=== PATIENT | female | born 1975 | race Asian ===

== ENCOUNTER 2023-01-02 14:32 | Inpatient (IN) | payer OTHER, SELFPAY ==
[2022-12-25 10:49] VITALS: BMI 27.4
[2023-01-02] VITALS (11 sets, daily range): BP systolic 102–199; BP diastolic 54–104; PULSE 78–99; RESP 13–20; TEMP 35.7–36.9; O2SAT 96–100; BMI 27.4
--- NOTE | 2023-01-02 | PATH_ITS ---
[facility] Accession Number: [id number] No. of containers..01 Tissue . 01 Material submitted: . uterus - UTERUS,CERVIX,BILATERAL FALLOPIAN TUBES, RIGHT OVAR . 01 Diagnosis: Uterus, Cervix, Bilateral Fallopian Tubes, Right Ovary, Hysterectomy, Bilateral Salpingectomy, and Right Oophorectomy (Weight 603 grams): Ectocervix with focal parakeratosis. Endocervix with inflammation and prominent Nabothian gland cysts; involvement by a leiomyoma (15 mm), negative for cytologic atypia or malignancy. Inactive endometrium; negative for glandular hyperplasia, cytologic atypia or malignancy. Myometrium with multiple intramural leiomyomas (up to 35 mm in greatest dimension); negative for significant atypia or malignancy. Serosa with patchy pseudodecidualized stromal change, suggestive of possible involvement by endometriosis,in the appropriate clinical setting. Left fallopian tube with no significant histomorphologic abnormality. Right ovary with a prominent focus of ovarian stromal hyperplasia. MRV 01/13/2023 1605 Local . 01 Comment: As part of quality systems manager, parts of this case were also reviewed by Dr. Bettencourt, who agrees with the interpretation. . 01 Electronically signed: . Rosario Berman MD, Pathologist NPI- [id number] . 01 Gross description: . The specimen is received in formalin labeled with the patient's name, , and uterus, cervix, bilat. fallopian tubes, right ovary, and consists of an intact, significantly distorted uterus (603 grams, 12.2 x 11.7 x 9.4 cm, due to the distortion orientation cannot be determined), with detached cervix (3.5 x 3.2 cm and 5.5 cm in length), detached presumed left fimbriated fallopian tube (3.3 x 0.7 cm), attached presumed right fimbriated fallopian tube (5.7 x 0.7 cm), and attached presumed right ovary (4 grams, 2.7 x 1.0 x 1.0 cm), and no additional adnexa identified. The ectocervix is pink-jalloh and finely granular with a circular cervical os measuring 0.7 cm in diameter. The paracervical margin is inked blue. The uterine serosa is jalloh and nodular with multiple roughened and hemorrhagic areas measuring up to 5.7 cm in greatest dimension. The presumed area of previous cervical attachment is inked black. The endocervical canal has jalloh herringbone mucosa and is significant for a moderate amount of thick, sticky mucoid material and a well-circumscribed white whorled nodule measuring 1.5 cm in greatest dimension. The endocervical canal measures 5.1 cm in length. The endometrial cavity is significantly distorted and measures approximately 1.9 cm from cornu to cornu, and 7.3 cm in length with no polyps or lesions grossly identified. The myometrium is jalloh and trabecular and significant for numerous well-circumscribed white whorled nodules measuring up to 3.5 cm in greatest dimension and significant for hemorrhagic areas and areas of yellow discoloration possibly consistent with necrosis. No calcification is identified. The myometrium measures up to 5.6 cm in maximum thickness. The left fallopian tube has congested smooth serosa with no cystic structures identified, and sectioning reveals an unremarkable stellate lumen. The right fallopian tube has jalloh smooth serosa with no cystic structures identified and sectioning reveals an unremarkable stellate lumen. The right ovary has a jalloh cerebriform external surface and sectioning reveals a pale jalloh, physiologic cut surface with no discrete lesions grossly identified. . Administrative Tech sections are submitted as follows: A1-A2: Cervix with nodule. A3-A4: Full thickness composite sections. A5: Hemorrhagic serosa. A6-A9: Administrative Tech nodules with hemorrhage and possible necrotic areas. A10: Left fallopian tube to include one-half of bisected fimbriae and cross-sections. A11: Right fallopian tube to include one-half of bisected fimbriae and cross-sections. A12: Administrative Tech right ovary. ([id number]) /MIR 01/03/2023 1054 Local . 01 Pathologist provided ICD-10: D25.9, N92.1 . 01 CPT . 553617 Specimen Comment: A courtesy copy of this report has been sent to [phone] Performed at: 01 [facility] [address] [place] [address], [place], [place] [id number] MD Pavel Chowdhury MD Phone: [phone]
[2023-01-02 09:20] LABS: COVID19 -Nasal RAPID Negative (Negative)
[2023-01-02] MEDS: LACTATED RINGERS 1,000 ML 42 ML IV (09:36)
--- NOTE | 2023-01-02 09:36 | PM.PREOP ---
Pre-operative Note COVID-19 COVID-19 status: Negative Result date/Date tested (Pos, Neg/Pending): 01/02/23 Criteria for continued procedure: Non-surgical alternatives not available or appropriate per current SOC Interval Note History & Physical reviewed/Exam performed by Physician: Yes Changes to H&P: No
[2023-01-02] MEDS: SCOPOLAMINE 1 PATCH TOP (09:38)
[2023-01-02 09:59] LABS: Add Manual Diff / Slide Review NO; Basophils Absolute Auto 100 /uL (0-100); Basophils Percent Auto 0.8 % (0-2); Eosinophils Absolute Auto 100 /uL (0-450); Hematocrit 44.1 % (36-46); Lymphocytes Absolute Auto 2300 /uL (1100-4500); Lymphocytes Percent Auto 31.8 % (25-40); Mean Corpuscular Hemoglobin 28.5 PG (26-34); Mean Corpuscular Volume 83.8 fL (80-100); Monocytes Absolute Auto 700 /uL (0-900); Monocytes Percent Auto 9.5 % (3-14); Neutrophils Absolute Auto 4000 /uL (1500-7000); Neutrophils Percent Auto 55.9 % (50-75); Platelet Count 292 X10^3/uL (150-400); Red Blood Cell Count 5.26 X10^6/uL (4.0-5.2); Red Cell Distribution Width 13.5 % (11.6-14.8); White Blood Cell Count 7.2 X10^3/uL (4.5-11.0)
--- NOTE | 2023-01-02 10:11 | SUR.OPER ---
Lithotomy on padded OR bed. Nada Pad Positioner under torso. Head on pillow, arms padded and tucked at sides. Legs secured in padded yellow fins stirrups.
[2023-01-02] MEDS: CEFAZOLIN 2 GM/100 ML PREMIX 100 ML IV (10:30)
[2023-01-02] MEDS: BUPIVACAINE 0.5% (PF) 10 ML VIAL 30 ML INJ (11:20)
[2023-01-02] MEDS: ACETAMINOPHEN IV 1,000 MG/100 ML VIAL 400 MG IV (11:25)
[2023-01-02] MEDS: hydrOXYzine pamoate 25 MG CAPSULE PO (13:10)
[2023-01-02] MEDS: OXYCODONE IR 5 MG TABLET PO (13:10)
[2023-01-02] MEDS: ONDANSETRON 4 MG/2 ML INJ IV (13:11)
[2023-01-02] MEDS: LACTATED RINGERS 1,000 ML 100 ML IV ×3 (13:35→22:59)
--- NOTE | 2023-01-02 13:48 | P.OP_ITS ---
Operative Date/Time/Diagnoses Date of procedure: 01/02/23 Time of procedure: 10:30 Pre-op diagnosis: Menometrorrhagia Uterine fibroids Post-op diagnosis: same Procedure & Clinicians Procedure: Procedures Operation Date: 01/02/23 09:45 Actual Procedure Side Surgeon p TOTAL ABDOMINAL HYSTERECTOMY, w/ RIGHT SALPINGO-OOPHORECTOMY AND LEFT SLAPINGECTOMY DIAGNOSTIC LAPAROSCOPY Neel Madison MD Indications: Ev is a 46-year-old , LMP about 3 weeks ago w/ ongoing spotting, who presented in referral from Dr. Shavon Haskins in order to discuss hysterectomy.? The patient experienced menarche at age 11 and although her periods were heavy through out most of her reproductive life, they were fairly regular.? She is had a single resulting in a single spontaneous vaginal and due to her heavy periods was placed on oral contraceptives for many years.? Her periods remain regular but in September 2021 her menses which were lasting about 5 days at the time increased to 10 days in duration with only a few days off between the end of one and the start of the next.? By March 2022 however her bleeding was almost continuous and she had a pelvic ultrasound performed at that time which showed the uterus to be enlarged measuring 15.6 x 7.9 x 12.2 cm with numerous fibroids noted.? The ovaries were unremarkable.? No pathologic free fluid or pelvic fluid was noted.? In April 2022 she underwent endometrial biopsy which showed only scant fragments of proliferative endometrium with no atypia, neoplasia, or hyperplasia noted.? She is currently on Lessina daily and Norethindrone acetate 10 mg to control her bleeding.? While somewhat effective upon initiation, she's been bleeding nealry? continuously since March 2022.? She is taking additional iron daily but no recent H&H results are available.? Pap smear is current with her most recent Pap in 2020 and all of her Paps have been normal.? Plugger Man review of systems is notable for some occasional mild JOSÉ MIGUEL and urinary frequency.? She has had no issues with bowel movements or defecation. After discussion regarding all options further evaluation and treatment, the patient has opted to proceed with total laparoscopic hysterectomy with bilateral salpingectomy, possible laparoscopic-assisted vaginal hysterectomy with bilateral salpingectomy, or possible total abdominal hysterectomy with bilateral salpingectomy.? She presents today for preoperative evaluation, counseling, and consent. Surgeon: Neel Madison Real Estate Site Analyst: Elsa Francis Anesthesia Type: General Operative Notes Findings: The uterus is enlarged to approximately 14 week size and is multiple myomatous. Laterally, the uterus extended to both pelvic sidewalls due to the position of her myomas laterally. The right tube and ovary are densely adherent to the lateral aspect of the uterus and therefore were removed along with the uterus. The left adnexa was also distorted but not adherent to the uterus and therefore the left ovary was left in-situ but the left tube was removed. Visualization the pelvis and abdomen laparoscopically revealed the findings as noted previously and due to the size and location of the uterine fibroids, laparoscopic hysterectomy was not deemed feasible and therefore an open procedure was instead performed. Closure Type: primary Specimen(s): right tube & ovary, portion of left tube and uterus Applied: catheter Estimated blood loss (mL): 800 Blood products transfused: none Procedure in detail: With the patient under satisfactory general anesthesia in the modified dorsal lithotomy position, the perineum, vagina, and abdomen were prepped and draped in the usual manner for total laparoscopic hysterectomy. A pre-surgical safety time-out was then taken in accordance with [facility] OR protocols. An indwelling Buckner catheter was inserted in the bladder. A speculum was then inserted in the vagina and the cervix visualized. The anterior lip of the cervix was grasped with a single-tooth tenaculum and a VCare uterine manipulator with a medium cup was placed with the endometrial cavity sounding to 11 cm. The patient was repositioned and the lower edge of the umbilicus was infiltrated with 0.5% Marcaine with epinephrine. A 1 cm vertical umbilical incision was made through which a Veress needle was used to insufflate the abdomen with carbon dioxide. Once insufflated, a 5 mm laparoscopic port was inserted through the umbilical incision and confirmation of its correct placement was carried out by laparoscopic inspection of the abdominal cavity. A 2nd and 3rd 5 mm port was placed in the left and right mid quadrants laterally after infiltration of the skin and subcutaneous tissues with 0.5% Marcaine. Using a 3 puncture technique the pelvis and abdomen were thoroughly evaluated with the findings as noted above. The uterus was poorly mobile even with the VC are device in place and due to the proximity to the lateral pelvic chun, laparoscopic hysterectomy was not felt to be safe or feasible therefore the pneumoperitoneum was vented, the ports removed, and preparations made for total abdominal hysterectomy. A 15 cm Pfannenstiel incision was then made and carried down to the deep fascia. The d eep fascia was incised transversely, the rectus abdominis bluntly and the peritoneal cavity entered sharply. Incision was extended upward and downward to the pubis and an O'Luis Enrique O'Garner retractor was placed. Fundus was grasped with a double tooth tenaculum and the uterus mobilized so as to fully evaluate the adnexa on both sides. A LigaSure hand-held device was then used to coagulate and divide the round ligament and the utero-ovarian ligament on the left side. The dissection was carried downward and the bladder flap initiated starting on the left. Attention was then turned to the right side and due to the adhesions involving the right adnexa, the LigaSure device was used to coagulate and divide the round on the right as well as the infundibulopelvic ligament on the right immediately adjacent to the hilum of the ovary. The dissection was then carried down laterally with the LigaSure device so as to coagulate the ascending uterine vessels on both sides. Once the vessels had been secured, the fundus was amputated and passed off field. Dissection with the LigaSure was then carried down to the level of the cervix with each pedicle rendered hemostatic. Once the level of the cervix had been reached, the vaginal mucosa was incised at its reflection with the cervix using Gilbert scissors. Scott clamps were placed on the vaginal mucosa and each angle was secured with #1 Vicryl using transfixing angle stitches. The remainder of the vaginal cuff was then closed with [id number] interrupted using #1 Vicryl. Hemostasis of all pedicles was excellent but there were numerous areas of raw surface which were managed by judicious use of monopolar current and a large Surgicel was placed in the pelvis at the completion of the case and pressure held for several minutes to assure complete hemostasis. Sponge count was correct and the O'Luis Enrique O'Garner were removed from the abdominal cavity. The anterior peritoneum was then closed with 2-0 Vicryl in a running stitch and the fascia closed with 0 Vicryl in a running stitch initiated at both angles and tying separately near the midline. Subcutaneous tissues were also closed with 2-0 Vicryl in a running stitch and the skin edges were brought together with 4-0 Monocryl in a running subcuticular stitch. The laparoscopic port incisions were then closed with 4-0 Monocryl using inverted interrupted stitches and skin glue was applied to the port incisions. Appropriate compression dressings were applied to all incisions and the patient was awakened from anesthesia after having tolerated the procedure well. She was then transferred to the PACU for a period of observation and recovery. Complications: none Post-operative Condition: stable Disposition: PACU Plan for aftercare: Routine postoperative care
[2023-01-02] MEDS: OXYCODONE IR 5 MG TABLET 10 MG PO ×3 (15:36→23:55)
[2023-01-02] MEDS: ACETAMINOPHEN 325 MG TABLET 650 MG PO (18:30)
[2023-01-02] MEDS: DOCUSATE 100 MG CAPSULE 200 MG PO (21:42)
[2023-01-03] VITALS: BP 136/68; PULSE 95; RESP 18; TEMP 36.4; O2SAT 98
[2023-01-03 04:00] VITALS: BP 147/74; PULSE 107; RESP 18; TEMP 36.6; O2SAT 98
[2023-01-03] MEDS: OXYCODONE IR 5 MG TABLET 10 MG PO ×5 (04:51→22:29)
--- NOTE | 2023-01-03 06:25 | PC.NURSE ---
Process Control Programmer Note-A/Ox4, VSS, abdominal dressings D/I, 'belly band' to lower abdomen intact, scant vaginal drainage. 1775ml UOP. Pain controlled with 10mg oxycodone per prn.
[2023-01-03 07:03] LABS: Add Manual Diff / Slide Review NO; Basophils Absolute Auto 0 /uL (0-100); Basophils Percent Auto 0.1 % (0-2); Eosinophils Absolute Auto 0 /uL (0-450); Eosinophils Percent Auto 0.1 % (2-4); Hematocrit 27.8 % (36-46); Hemoglobin 9.4 g/dL (12.0-16.0); Lymphocytes Absolute Auto 1900 /uL (1100-4500); Mean Corpuscular HGB Conc 33.8 % (30-36); Mean Corpuscular Hemoglobin 28.7 PG (26-34); Monocytes Absolute Auto 1600 /uL (0-900); Monocytes Percent Auto 12.2 % (3-14); Neutrophils Absolute Auto 9700 /uL (1500-7000); Neutrophils Percent Auto 73.6 % (50-75); Platelet Count 224 X10^3/uL (150-400); Red Blood Cell Count 3.27 X10^6/uL (4.0-5.2); Red Cell Distribution Width 13.5 % (11.6-14.8); White Blood Cell Count 13.2 X10^3/uL (4.5-11.0)
[2023-01-03] MEDS: ACETAMINOPHEN 325 MG TABLET 650 MG PO ×2 (07:50→15:11)
[2023-01-03 07:52] VITALS: BP 129/76; PULSE 83; RESP 17; TEMP 36.6; O2SAT 97
[2023-01-03] MEDS: DOCUSATE 100 MG CAPSULE 200 MG PO ×2 (07:56→20:30)
--- NOTE | 2023-01-03 10:39 | P.PN_ITS ---
Subjective Subjective Date Patient Seen: 01/03/23 Time Patient Seen: 10:39 Interval history: Patient has done well overnight with good pain control. She has started to pass gas and is not experiencing significant nausea. She is not experiencing any significant vaginal bleeding. She does have some right shoulder pain consistent with subdiaphragmatic air post laparoscopy/laparotomy. H&H this a.m. consistent with observed operative losses. Exam Vital Signs (past 8 hours): - 01/03/23 04:00 01/03/23 07:52 01/03/23 07:00 Temperature 97.9 F 97.9 F Pulse Rate 107 H 83 Respiratory Rate 18 17 Blood Pressure 147/74 H 129/76 Pulse Oximetry 98 97 Oxygen Delivery Method Room Air Oxygen Flow Rate 0 Oxygen Delivery Method Room Air Oxygen Flow Rate 0 Const General: cooperative and comfortable Nutritional Appearance: average body habitus Orientation: alert and oriented x3 HENMT Head: normal to inspection, atraumatic and abrasion Ears: hearing grossly normal bilaterally Face and sinus: face symmetric Eyes General: appearance normal, both eyes and all related structures Conjunctivae: conjunctivae normal Sclera: sclerae normal EOM: EOM intact bilaterally Neck Neck: normal visual inspection Resp Effort & Inspection: normal respiratory effort and able to speak in complete sentences Auscultation: clear to auscultation bilaterally Cardio Rate: regular rate Rhythm: regular rhythm Heart Sounds: S1 normal, S2 normal and no murmurs GI Inspection: normal to inspection and incision (Surgical dressings clean and dry) Palpation: soft, no hepatosplenomegaly and tender (Mild, diffuse postsurgical tenderness) Auscultation: hypoactive bowel sounds External Female Exam: other (No significant bleeding noted) Extrem General: no calf tenderness Psych Appearance: grossly normal Mental Status: mental status grossly normal Speech and Movement: speech and movement normal Mood: congruent mood Affect: normal affect Attitude: cooperative Thought Process: normal Thought Content: normal Judgment: judgment good Objective Labs 01/03/23 05:45 Labs: Laboratory Results - last 24 hr 01/03/23 05:45 WBC 13.2 H D RBC 3.27 L Hgb 9.4 L Hct 27.8 L MCV 85.0 MCH 28.7 MCHC 33.8 RDW 13.5 Plt Count 224 Neut % (Auto) 73.6 Lymph % (Auto) 14.0 L [place] % (Auto) 12.2 Eos % (Auto) 0.1 L Baso % (Auto) 0.1 Neut # (Auto) 9700 H Lymph # (Auto) 1900 [place] # (Auto) 1600 H Eos # (Auto) 0 Baso # (Auto) 0 PFSH Medical History (Updated 01/03/23 @ 10:50 by Neel Madison MD) Anemia Carpal tunnel syndrome Fibroids Heavy menstrual period Irregular menstrual cycle Painful menstrual periods Vision disorder Surgical History (Updated 01/03/23 @ 10:50 by Neel Madison MD) Anesthesia History of appendectomy History of dental surgery (~2020) Family History (Updated 07/09/22 @ 20:33 by Delmi Sheikh) Father Diabetes mellitus History of heart disease Hypertension Hyperlipidemia Stroke Mother Diabetes mellitus Hypertension Social History household members: spouse, family and children Smoking Status: Never smoker alcohol intake: never Assessment & Plan Assessment and plan (1) Menometrorrhagia: Status: Acute (2) Uterine fibroid: Qualifiers: Uterine leiomyoma location: intramural, submucous, and subserous Qualified Code(s): D25.1 - Intramural leiomyoma of uterus; D25.0 - Submucous leiomyoma of uterus; D25.2 - Subserosal leiomyoma of uterus Status: Acute (3) Anemia due to blood loss: Status: Acute (4) H/O hysterectomy with unilateral oophorectomy: Status: Acute Plan Continue routine postoperative care. Will plan to have FSH tested at her 2 week postop check due to vasomotor symptoms she has been experiencing and continues to experience. Discontinue Buckner catheter and encourage ambulation today. Compression dressing will be removed tomorrow and replaced with Aquacel d ressing. Anticipate discharge tomorrow; PO iron supplementation for 30 days post-op Assessment & Plan narrative: Postoperative day 1 status post diagnostic laparoscopy, total abdominal hysterectomy with right salpingo-oophorectomy and left salpingectomy. Anemia due to operative blood loss at the time of hysterectomy Vasomotor symptoms associated with perimenopause/menopause Time Spent With Patient Time with patient: less than 30 minutes Quality VTE Deep Vein Thrombosis/Pulmonary Embolism Present on Admission: No
[2023-01-03 11:22] VITALS: BP 123/61; PULSE 85; RESP 18; TEMP 36.7; O2SAT 98
--- NOTE | 2023-01-03 15:23 | PC.NURSE ---
1500 Patient up ambulating to the bathroom, voided, and is now walking in [place] with PCT. Pt denies dizziness and states she feels stable on her feet. C/o abdominal cramping that she states feels like gas. Patient encouraged to walk frequently. Abd lap site dressings x 3 are C/D/I. Lower abd belly band compression dressing is C/D/I.
--- NOTE | 2023-01-03 16:27 | PM.OBPNLAB ---
Date/Time Date Patient Seen: 01/03/23 Time Patient Seen: 16:27
[2023-01-03] MEDS: SIMETHICONE 80 MG TABLET PO ×2 (17:52→22:29)
[2023-01-03 17:55] VITALS: BP 151/74; PULSE 88; RESP 18; TEMP 36.8; O2SAT 97
--- NOTE | 2023-01-03 18:18 | PC.NURSE ---
1800 Patient ambulating in hallway, denies dizziness, c/o intermittent cramping pain that feels like gas.
[2023-01-03 20:00] VITALS: BP 142/76; PULSE 85; RESP 18; TEMP 36.6; O2SAT 99
[2023-01-03] MEDS: ONDANSETRON 4 MG ODT SL (22:37)
[2023-01-04] MEDS: OXYCODONE IR 5 MG TABLET 10 MG PO (02:53)
[2023-01-04] MEDS: SIMETHICONE 80 MG TABLET PO (02:53)
[2023-01-04 04:00] VITALS: BP 163/93; PULSE 95; RESP 18; TEMP 36.5; O2SAT 96
[2023-01-04 05:04] VITALS: BP 155/76
[2023-01-04 09:25] VITALS: BP 145/78; PULSE 97; RESP 17; TEMP 36.6; O2SAT 97
--- NOTE | 2023-01-04 10:28 | P.DS_ITS ---
History of Present Illness History of Present Illness Date Patient Seen: 01/04/23 Time Patient Seen: 10:29 Chief complaint: Menometrorrhagia, uterine fibroids Narrative: Ev is a 46-year-old , LMP about 3 weeks ago w/ ongoing spotting, who presented in referral from Dr. Shavon Haskins in order to discuss hysterectomy.? The patient experienced menarche at age 11 and although her periods were heavy through out most of her reproductive life, they were fairly regular.? She is had a single resulting in a single spontaneous vaginal and due to her heavy periods was placed on oral contraceptives for many years.? Her periods remain regular but in September 2021 her menses which were lasting about 5 days at the time increased to 10 days in duration with only a few days off between the end of one and the start of the next.? By March 2022 however her bleeding was almost continuous and she had a pelvic ultrasound performed at that time which showed the uterus to be enlarged measuring 15.6 x 7.9 x 12.2 cm with numerous fibroids noted.? The ovaries were unremarkable.? No pathologic free fluid or pelvic fluid was noted.? In April 2022 she underwent endometrial biopsy which showed only scant fragments of proliferative endometrium with no atypia, neoplasia, or hyperplasia noted.? She is currently on Lessina daily and Norethindrone acetate 10 mg to control her bleeding.? While somewhat effective upon initiation, she's been bleeding nealry? continuously since March 2022.? She is taking additional iron daily but no recent H&H results are available.? Pap smear is current with her most recent Pap in 2020 and all of her Paps have been normal.? Wealth Management Manager review of systems is notable for some occasional mild JOSÉ MIGUEL and urinary frequency.? She has had no issues with bowel movements or defecation. After discussion regarding all options further evaluation and treatment, the patient has opted to proceed with total laparoscopic hysterectomy with bilateral salpingectomy, possible laparoscopic-assisted vaginal hysterectomy with bilateral salpingectomy, or possible total abdominal hysterectomy with bilateral salpingectomy.? Discharge Providers Provider Date of admission: 01/02/23 14:32 Discharge Date: 01/04/23 Primary care physician: Annalise Green PA-C Discharge provider: Neel Madison MD Summary Hospital Course Discharge Diagnosis: Menometrorrhagia Uterine Fibroids Hospital Course: On the afternoon of 01/02/2023, Ev underwent diagnostic laparoscopy with pl ans for laparoscopic hysterectomy but due to her uterine anatomy, open total abdominal hysterectomy with right salpingo-oophorectomy and left salpingectomy was performed. Details of the procedure well summarized on my operative note that date. Following surgery she has experienced prompt return of bowel and bladder function, is ambulating independently, tolerating a regular diet, and her pain is well relieved with oral pain medications. She is anemic due to intraoperative blood losses but her vital signs are stable. She will be discharged at this time in an afebrile, normotensive condition with instructions regarding precautionary symptoms, limitations of activity, and plans for follow-up which will be in 2 weeks. Medications at discharge will include oxycodone 10 mg every 6 hours as needed for pain, naproxen 500 mg p.o. q.8 hours as needed pain, and ondansetron 8 mg p.o. every 6 hours as needed as needed for nausea. Status at Discharge Cognitive/behavioral status at discharge: oriented Functional status at discharge: independent ambulation Overall status at discharge: patient is progressing back to baseline Time Spent with Patient Time spent: Less than 30 minutes Exam Vital Signs (past 8 hours): - 01/04/23 04:00 01/04/23 05:04 01/04/23 09:25 Temperature 97.7 F 98 F Pulse Rate 95 H 97 H Respiratory Rate 18 17 Blood Pressure 163/93 H 155/76 H 145/78 H Pulse Oximetry 96 97 Oxygen Flow Rate 0 Oxygen Delivery Method Room Air Oxygen Flow Rate 0 Const General: cooperative and comfortable Nutritional Appearance: average body habitus Orientation: alert and oriented x3 HENNC Head: normal to inspection, atraumatic and abrasion Ears: hearing grossly normal bilaterally Face and sinus: face symmetric Eyes General: appearance normal, both eyes and all related structures Conjunctivae: conjunctivae normal Sclera: sclerae normal EOM: EOM intact bilaterally Neck Neck: normal visual inspection Resp Effort & Inspection: normal respiratory effort and able to speak in complete sentences Auscultation: clear to auscultation bilaterally Cardio Rate: regular rate Rhythm: regular rhythm Heart Sounds: S1 normal, S2 normal and no murmurs GI Inspection: normal to inspection and incision (Surgical dressings clean and dry; compression dressing removed and replaced) Palpation: soft, no hepatosplenomegaly and tender (Mild, diffuse postsurgical tenderness) External Female Exam: other (No significant bleeding noted) Extrem General: no calf tenderness Psych Appearance: grossly normal Mental Status: mental status grossly normal Speech and Movement: speech and movement normal Mood: congruent mood Affect: normal affect Attitude: cooperative Thought Process: normal Thought Content: normal Judgment: judgment good Objective Labs 01/03/23 05:45 PFSH Medical History (Updated 01/03/23 @ 10:50 by Neel Madison MD) Anemia Carpal tunnel syndrome Fibroids Heavy menstrual period Irregular menstrual cycle Painful menstrual periods Vision disorder Surgical History (Updated 01/03/23 @ 10:50 by Neel Madison MD) Anesthesia History of appendectomy History of dental surgery (~2020) Family History (Updated 07/09/22 @ 20:33 by Delmi Sheikh) Father Diabetes mellitus History of heart disease Hypertension Hyperlipidemia Stroke Mother Diabetes mellitus Hypertension Social History household members: spouse, family and children Smoking Status: Never smoker alcohol intake: never Discharge Assessment & Plan Assessment and Plan Assessment: Postoperative day 2 status post total abdominal hysterectomy with right salpingo oophorectomy and left salpingectomy. Anemia due to surgical blood loss Plan of Treatment: Discharge to home Follow-up scheduled for 2 weeks post-op Discharge instructions provided FSH and H&H to be drawn at 2 week post-op visit Discharge Plan Discharge Plan Patient Disposition: Home Provider Discharge Comment: Please review the written instructions you received when you were discharged from the hospital. Your follow-up appointment will be scheduled for 2 weeks after your surgery and I look forward to seeing you then. If however in the meanwhile you have any issues, concerns, or questions, please contact me either through the office phone at [phone], or via the patient portal. Discharge orders & Medications Prescriptions: New oxycodone 5 mg Tablet 10 mg PO Q6H PRN (Reason: Pain, Severe (7-10)) Qty: 20 0RF naproxen 500 mg tablet 500 mg PO Q8HR PRN (Reason: pain) Qty: 30 0RF ondansetron 8 mg tablet,disintegrating 8 mg PO Q8H PRN (Reason: nausea and vomiting) Qty: 10 0RF Continued cholecalciferol (vitamin D3) 25 mcg (1,000 unit) tablet 25 mcg PO DAILY Discontinued norethindrone acetate 5 mg tablet See Rx Instructions .ROUTE .COMPLEX Qty: 60 3RF Dose Instruction: Take 1 tablet by mouth once daily Rx Instructions: Take 1 tablet by mouth once daily Follow up/Referrals: Annalise Green PA-C [Primary Care Provider] - Discharge Health Status Multidrug resistant organism: No MDRO Diet/Activity/Treatments Diet: Diet as Tolerated Activity: As tolerated Other treatments: Mvde-bzf-zznufqq Tylenol may be used for additional pain relief. Mvaw-bpi-cjqwyht stool softeners and/or MiraLax may be used as needed for constipation. You should add additional iron to your diet for the next 30 day seither as a supplement with vitamin C or as iron rich foods. Skin/Wound/Dressing Care Report to your healthcare provider any signs of infection, such as:: chills, fever, unusual drainage and unusual redness Dressing: Dressings may be removed at any time. Please leave the Steri-Strips in place until your 2 week follow-up visit. Visit Report/Discharge Packet Instructions: DI for Hysterectomy, DI for Laparoscopy, DI for Prescription Opioid Use Stand Alone Forms: Patient Portal/API, Stroke Signs & Symptoms Discharge Data Primary Care Provider: Annalise Green Quality VTE Deep Vein Thrombosis/Pulmonary Embolism Present on Admission: No
== END 2023-01-04 11:27 | disposition home or self-care (01) | DRG 742 ==
LOC: OR 01-03 07:00 → AC 01-03 07:00
PROVIDERS: Admitting Provider Obstetrics & Gynecology; PCP Physician Assistant; Referring Provider Obstetrics & Gynecology; Visit Provider Obstetrics & Gynecology
PROC: 0UT94ZZ Resection of Uterus, Percutaneous Endoscopic Approach (ICD-10-PCS; principal; 2023-01-02 09:45)
DX: N92.1 Excessive and frequent menstruation with irregular cycle (principal); D62 Acute posthemorrhagic anemia; D25.1 Intramural leiomyoma of uterus; D25.0 Submucous leiomyoma of uterus; D25.2 Subserosal leiomyoma of uterus; Z20.822 Contact with and (suspected) exposure to COVID-19
CPT/HCPCS: 36415; 58150; 85025; 87635; C9803; J0131; J0690; J1100; J2250; J2405; J3010

== ENCOUNTER → 2023-01-16 10:35 | Outpatient (CLI) | payer OTHER, SELFPAY ==
[2023-01-02 13:25] VITALS: BMI 27.4
[2023-01-16 12:03] LABS: Hematocrit 35.5 % (36-46); Hemoglobin 11.8 g/dL (12.0-16.0)
== END ==
PROVIDERS: PCP Physician Assistant; Referring Provider Obstetrics & Gynecology; Visit Provider Obstetrics & Gynecology
DX: D50.0 Iron deficiency anemia secondary to blood loss (chronic) (principal); N95.1 Menopausal and female climacteric states
CPT/HCPCS: 36415; 83001; 85014; 85018

== ENCOUNTER → 2023-01-28 14:55 | Outpatient (CLI) | payer OTHER, SELFPAY ==
[2023-01-02 13:25] VITALS: BMI 27.4
[2023-01-28 17:08] LABS: Appearance Urine UA CLEAR; Bilirubin Urine UA NEGATIVE (NEGATIVE); Color Urine UA YELLOW; Glucose Urine UA NEGATIVE (Negative); Ketones Urine UA NEGATIVE (NEGATIVE); Leukocyte Esterase Urine UA 2+ (NEGATIVE); Nitrite Urine UA NEGATIVE (Negative); Occult Blood Urine UA 1+ (Negative); Protein Urine UA NEGATIVE (Negative); Specific Gravity Urine UA 1.015 (1.000-1.035); Urobilinogen Urine UA 0.2 E.U./dL (0.2)
[2023-01-28 17:19] LABS: pH Urine UA 6.5 (4.5-8.0)
[2023-01-28 17:31] LABS: Bacteria Urine Moderate (10-30); Culture Indicated Urine Specimen Cultured; RBC Urine 0-1/HPF (0-5/HPF); Squamous Epithelial Cell Urine 5-10 /HPF (0-5/HPF); WBC Urine 10-30/HPF (0-5/HPF)
== END ==
PROVIDERS: PCP Physician Assistant; Referring Provider Obstetrics & Gynecology; Visit Provider Obstetrics & Gynecology
DX: N39.0 Urinary tract infection, site not specified (principal)
CPT/HCPCS: 81003; 81015; 87086

== ENCOUNTER → 2023-02-04 12:24 | Outpatient (CLI) | payer OTHER, SELFPAY ==
[2023-01-02 13:25] VITALS: BMI 27.4
== END ==
PROVIDERS: PCP Physician Assistant; Visit Provider Obstetrics & Gynecology
DX: R30.0 Dysuria (principal)
CPT/HCPCS: 87086

== ENCOUNTER → 2023-02-13 10:27 | Outpatient (CLI) | payer OTHER, SELFPAY ==
[2023-01-02 13:25] VITALS: BMI 27.4
== END ==
PROVIDERS: PCP Physician Assistant; Visit Provider Obstetrics & Gynecology
DX: R30.0 Dysuria (principal)
CPT/HCPCS: 87086

== ENCOUNTER 2025-08-04 10:48 | Day surgery (SDC) | payer OTHER, SELFPAY ==
[2023-01-02 13:25] VITALS: BMI 27.4
[2025-07-25 08:27] VITALS: BMI 28.8
[2025-08-04] VITALS (8 sets, daily range): BP systolic 120–180; BP diastolic 70–96; PULSE 58–82; RESP 16; TEMP 36.2–36.8; O2SAT 97–100
--- NOTE | 2025-08-04 | PATH_ITS ---
[facility] Accession Number: [id number] No. of containers..01 Tissue . 01 Material submitted: . ovary - LEFT OVARY . 01 Diagnosis: LEFT OVARY, OOPHORECTOMY: Disrupted ovary with benign cyst with histologic features consistent with hemorrhagic cystic corpus luteum/ corpus luteal cyst. MRV 08/17/2025 1338 Local . 01 Comment: As part of ongoing coding quality analyst, this case is also reviewed by Dr. Jhonny Faulkner (Julie), who agrees with the interpretation. . 01 Electronically signed: . Zabrina Chahal MD, Pathologist NPI- [id number] . 01 Gross description: . Received in formalin, labeled with two patient identifiers and left ovary, is a 9 g, 3.5 x 2.7 x 2.4 cm, jalloh-pink to hill-purple, focally disrupted ovary. The outer surface is inked blue. It is shaggy with scant adhesions with a 2.5 cm disrupted possible cyst demonstrating jalloh-pink to jalloh-brown, smooth internal cyst lining with a 0.5 cm papillary area. The remaining ovary shows jalloh-pink, focally nodular parenchyma. There is moderate attached adnexal soft tissue demonstrating jalloh-pink, fibrous cut surfaces with multiple vessels. No fallopian tube is identified. Funeral Car Chauffeur sections of the ovary to include the disrupted possible cyst are submitted in cassettes A1-A3 (area of focal papillary area in A1). ([id number]) /FRR 08/06/2025 1331 Local . 01 Pathologist provided ICD-10: N83.209 . 01 CPT . 211379 Specimen Comment: A courtesy copy of this report has been sent to [phone] Performed at: [address] [facility] [id number] MD Pavel Chowdhury MD Phone: [phone]
[2025-08-04] MEDS: SCOPOLAMINE 1 PATCH TOP (11:38)
[2025-08-04] MEDS: LACTATED RINGERS 1,000 ML 42 ML IV (11:38)
[2025-08-04] MEDS: ACETAMINOPHEN IV 1,000 MG/100 ML VIAL 400 MG IV (11:39)
[2025-08-04] MEDS: FAMOTIDINE 20 MG/2 ML VIAL IV (11:39)
--- NOTE | 2025-08-04 13:06 | SUR.OPER ---
Lithotomy on padded OR bed, head on pillow, arms PADDED WITH GEL PADS AND TUCKED AT PATIENT SIDES. Legs secured in padded yellow fins stirrups. SAFETY STRAP ACROSS PATIENT SHOULDERS. ALL POSITIONING APPROVED AND DIRECTED BY SURGEON PRIOR TO START OF PROCEDURE.
--- NOTE | 2025-08-04 13:08 | PM.PREOP ---
Pre-operative Note COVID-19 COVID-19 status: Not tested Interval Note History & Physical reviewed/Exam performed by Physician: Yes Changes to H&P: No
--- NOTE | 2025-08-04 13:54 | SUR.OPER ---
Supine on padded OR bed, head on pillow, arms padded and tucked at sides, legs uncrossed, safety belt at thigh, blanket over lower legs . ALL POSITIONING APPROVED AND DIRECTED BY SURGEON PRIOR TO START OF PROCEDURE.
--- NOTE | 2025-08-04 15:34 | SUR.OPER ---
FAMILY UPDATED VIA PHONE AT [phone]
--- NOTE | 2025-08-04 15:36 | PM.OP.1 ---
Operative Date/Time/Diagnoses Date of procedure: 08/04/25 Time of procedure: 15:36 Pre-op diagnosis: Left ovarian cyst Post-op diagnosis: same Procedure & Clinicians Procedure: Intraoperative consultation for lysis of adhesions and assistance with resection of left ovarian cystic structure Same procedure(s) as scheduled: Yes Surgeon: Aleksandr Welsh Assisted?: No Anesthesia Type: General Operative Notes Findings: Inflammatory left ovarian cyst Applied: none Estimated Blood Loss (mL): 10 Procedure in detail: I was called by Dr. Madison for an intraoperative consultation. He was performing a laparoscopic left oophorectomy on this patient for a left ovarian cyst. There were extensive adhesions and he consulted me for assistance with lysis of adhesions, identification of the anatomy and resection of the left ovarian cyst. When I entered the case there were extensive adhesions of the distal sigmoid colon proximal rectum over the left ovarian cyst which could not be seen. I started by reflecting the distal sigmoid colon and proximal rectum medially by taking down the white line of Toldt to expose the left ovarian cystic structure. I added an additional 5 mm port in the right upper quadrant to allow additional retraction of the colon. We found a plane between the sigmoid colon mesentery and mesorectum in the left ovarian cystic structures. We identified the left ureter which was coursing lateral to the ovarian cyst. There was some clear fluid that was entrapped between in the plane between the mesentery and the sidewall in the ovary. This was suctioned out. The left ovarian cystic structure was very densely adhered to the left ureter and was sharply dissected off using the laparoscopic scissors without cautery. Eventually we were able to free the cystic structure from the left ovary which was uninjured and visibly vermiculating throughout the case. The power seal was used to complete the left ovarian cystectomy. Once the left ovarian cystic structure was placed in a Endo-Catch bag I left and Dr. Madison completed the remainder of the case. Complications: none Post-operative Condition: stable Disposition: PACU
--- NOTE | 2025-08-04 16:07 | PM.GYNOP.1 ---
Operative Date/Time/Diagnoses Date of procedure: 08/04/25 Time of procedure: 13:30 Pre-op diagnosis: Left ovarian cyst Post-op diagnosis: other (Same as above, extensive abdominopelvic adhesions) Procedure & Clinicians Procedure: Procedures Operation Date: 08/04/25 12:15 Actual Procedure Side Surgeon p Laparoscopic Oophorectomy, LYSIS OF ADHESIONS Left Neel Madison MD Indications: Ev is a 49-year-old postmenopausal female who has been experiencing left lower quadrant pain and upon evaluation at [facility], was found to have a simple cystic mass arising in the area of the left ovary. Tumor markers were negative preop and we are proceeding now to laparoscopic left oophorectomy. Surgeon: Neel Madison Sourcing Intern: Aleksandr Welsh Anesthesia Type: General Operative Notes Findings: The entire left hemipelvis is encased in adhesions involving the sigmoid, rectosigmoid and surrounding epiploica. The adhesions extend all the way from the dome of the bladder all the way up to the pelvic brim. Initially the ovary could not be visualized but after extensive dissection of the left pelvic sidewall, the ovary was found to be enlarged and containing brownish yellow fluid with hemosiderin staining of the cyst wall. The ovary was densely adherent to the sidewall and in immediate proximity to the left ureter which was carefully dissected away and seen to be uninjured at the end of the procedure. Closure Type: primary Specimen(s): other (Left ovary) Applied: none Estimated blood loss (mL): 75 Blood products transfused: none Procedure in detail: With the patient under satisfactory general anesthesia in dorsal supine position, the abdomen was prepped and draped in the usual manner for laparoscopy. A pre-surgical safety time-out was then taken in accordance with [facility] Main OR protocols. A 2.5 cm vertical infraumbilical incision was made after infiltration of the skin and subcutaneous tissues with 0.25% Marcaine with epinephrine. The anterior abdominal wall fascia was then incised transversely and stay sutures of 0 Vicryl placed at either end of the incision. Entry into the peritoneal cavity was easily accomplished with Metzenbaum scissors and a Li 12 mm laparoscopy port was placed through the incision and secured in place with the stay sutures. A 2nd and 3rd 5 mm port were then placed at the left and right mid quadrant. This was accomplished following infiltration of those areas with 0.25% Marcaine with epinephrine. Using a 3 puncture technique the pelvis and abdomen were thoroughly inspected with the findings as noted previously. Initial attempts at performing this procedure with the assistance of a surgical services assistant was not feasible and my to daycare director partners were not available for assistance. Accordingly the surgeon on-call Dr. Aleksandr Welsh was contacted and kindly agreed to assist in the procedure. A 4th 5 mm trocar and sleeve was then placed deep in the right lower quadrant to assist with the dissection. Mobilization of the sigmoid and epiploica from the left pelvic sidewall was then accomplished with sharp and blunt dissection of the sidewall. Once the sigmoid was mobilized sufficiently, the ventral aspect of the left ovary came into view and a large amount of fluid was removed from the cyst cavity. Meticulous dissection of the ovarian capsule was then accomplished to the level of the left infundibulopelvic ligament which was isolated, coagulated, and divided with a PowerSeal device. Immediately lateral to the infundibulopelvic ligament on the left side, the ureter was seen to be freely away from the infundibulopelvic ligament itself and unaffected by division of the IP. Using traction and a combination of sharp and blunt dissection, the ovarian capsule was then freed from the sidewall and the left ureter was seen to be immediately underneath the cyst capsule. Complete excision of the left ovarian cyst and ovary was then accomplished with careful use of sharp and blunt dissection and judicious use of monopolar current for cutting/coagulation only as necessary. The remaining adhesions medially involving the sigmoid and surrounding epiploica were then lysed with a combination of sharp and blunt dissection. Careful inspection of the sigmoid, rectosigmoid, epiploica, sidewall, and left ureter was then carried out and all areas were seen to be hemostatic without any injury to either the sidewall structures including the ureter but also the sigmoid and rectosigmoid which were nearby medially. The pelvis and abdomen were irrigated thoroughly and reinspected for any evidence of bleeding. Due to the amount of raw surface area, the decision was made to place Perclot powder over those areas to facilitate complete hemostasis. All areas of the pelvis were then reinspected under low intra-abdominal pressure and there was no bleeding evident. The pneumoperitoneum was then vented and the laparoscopic trocars removed from the abdominal cavity. The umbilical incision was then closed with 0 Vicryl interrupted on the fascia and all incisions were then closed with 4-0 Monocryl using inverted interrupted stitches. Appropriate dressings were applied, the patient was awakened from anesthesia, and then transferred to the PACU for a period of observation after having tolerated the procedure well. Complications: none Post-operative Condition: stable Disposition: PACU Plan for aftercare: Routine postoperative care with follow-up planned for 2 weeks after surgery.
[2025-08-04] MEDS: ONDANSETRON 4 MG/2 ML INJ IV (17:32)
== END 2025-08-04 17:45 | disposition home or self-care (01) ==
PROVIDERS: PCP Physician Assistant; Referring Provider Physician Assistant; Visit Provider Obstetrics & Gynecology
PROC: (CPT 58661; principal; 2025-08-04 12:15)
DX: N83.202 Unspecified ovarian cyst, left side (principal); N73.6 Female pelvic peritoneal adhesions (postinfective)
CPT/HCPCS: 58661; 44180; J0131; J1100; J1885; J2405; J2704; J3010; J3490; J7120